=== PATIENT | male | born 1955 | race Asian ===

== ENCOUNTER 2022-07-09 13:23 | Outpatient (CLI) | payer OTHER | END 2022-07-09 13:24 | disposition home or self-care (01) | LOC: BICMRI 13:23 | PROVIDERS: ATTEND Internal Medicine | DX: M50.81 Other cervical disc disorders, high cervical region (principal) | CPT/HCPCS: 72141 ==

== ENCOUNTER 2022-10-20 16:37 | Emergency (ER) | payer OTHER | END 2022-10-20 19:15 | disposition home or self-care (01) | LOC: ERS 16:37 | DX: M79.671 Pain in right foot (principal); M25.551 Pain in right hip | CPT/HCPCS: 96372 ==